=== PATIENT | female | born 1995 | race Caucasian/White ===

== ENCOUNTER → 2018-07-17 | Outpatient (CLI) | payer BC ==
--- NOTE | 2018-07-17 17:03 | XR ---
Left wrist HISTORY: Left wrist pain 3 views of the left wrist Bone mineralization, joint spaces and alignment are maintained. No fracture or dislocation. IMPRESSION: No significant abnormality is evident. Wrist MRI may be of benefit.
== END ==
LOC: RADXRYALE 13:35
PROVIDERS: ATTEND Physician Assistant Medical
DX: M25.532 Pain in left wrist (principal)